=== PATIENT | male | born 1965 | race Caucasian/White ===

== ENCOUNTER → 2019-04-24 | Outpatient (CLI) | payer OTHER | LOC: COL.RAD 12:24 | DX: M79.604 Pain in right leg (principal); R60.0 Localized edema; Z96.651 Presence of right artificial knee joint ==

== ENCOUNTER → 2021-04-28 | Outpatient (CLI) | payer OTHER | LOC: DIA.ED 09:17 | DX: E11.9 Type 2 diabetes mellitus without complications (principal); E78.5 Hyperlipidemia, unspecified; I10 Essential (primary) hypertension | CPT/HCPCS: G0108 ==

== ENCOUNTER → 2021-05-19 | Outpatient (CLI) | payer OTHER | LOC: DIA.ED 08:22 | DX: E11.65 Type 2 diabetes mellitus with hyperglycemia (principal); I10 Essential (primary) hypertension; E78.5 Hyperlipidemia, unspecified | CPT/HCPCS: G0108 ==

== ENCOUNTER 2023-11-27 23:18 | Inpatient (IN) | payer OTHER ==
[~2023-11-27] VITALS: Ht 188 cm; Wt 129.9 kg
[2023-11-27 23:37] LABS: BASO # 0.1 K/mm3 (0.0-0.2); BASO % 0.3 % (0.0-2.0); EOS # 0.1 K/mm3 (0.0-0.7); EOS % 0.4 % (0.0-4.0); GRAN # 13.8 K/mm3 (1.4-6.5); GRAN % 81.5 % (42.2-75.2); HEMATOCRIT 51.7 % (42.0-52.0); HEMOGLOBIN 17.3 g/dl (13.5-18.0); LYMPH # 1.9 K/mm3 (1.2-3.4); LYMPH % 11.2 % (20.0-51.0); MEAN CELL VOLUME 92 fl (80.0-100.0); MEAN CORPUSCULAR HEMOGLOBIN 31 pg (27-31); MEAN CORPUSCULAR HGB CONC 34 g/dl (33.0-37.0); MEAN PLATELET VOLUME 9.2 fl (7.4-10.4); MONO # 1.1 K/mm3 (0.1-0.6); MONO % 6.2 % (1.7-9.3); PLATELET COUNT 299 K/mm3 (130-400); RED BLOOD COUNT 5.64 M/mm3 (4.20-5.60); REDCELL DISTRIBUTION WIDTH-CV 12.5 % (11.5-14.5)
[2023-11-28] VITALS (12 sets, daily range): BP systolic 101–159; BP diastolic 64–89; PULSE 71–99; TEMP 97.3–98.5
[2023-11-28 00:19] LABS: ALBUMIN 4.4 gm/dL (3.5-5.0); BILIRUBIN,TOTAL 1.2 mg/dL (0.2-1.2); CALCIUM 10.1 mg/dL (8.4-10.2); CREATININE, serum 1.52 mg/dL (0.72-1.25); POTASSIUM 4.3 mmol/L (3.5-4.5); TOTAL PROTEIN 7.1 gm/dL (6.2-8.1)
[2023-11-28 00:28] LABS: TROPONIN-I 0.089 ng/mL (0.00-0.033)
[2023-11-28] MEDS ORDERED: NS 500 ML IV ONE (00:30)
[2023-11-28] MEDS ORDERED: Heparin 5,000 UNITS/ML 1 ML VIAL IV PRN (00:45)
[2023-11-28] MEDS ORDERED: Heparin 5,000 UNITS/ML 1 ML VIAL IV ONE (00:45)
[2023-11-28] MEDS ORDERED: Heparin/D5W 250 ML IV SCH (00:45)
[2023-11-28 00:53] LABS: INR 1.2 (0.8-3.0); PROTHROMBIN TIME 12.7 SECONDS (9.7-12.8)
[2023-11-28] MEDS ORDERED: NS 74 ML IV ONE (01:28)
[2023-11-28] MEDS ORDERED: Iohexol 350 - 100 ML VIAL IV ONE (01:28)
[2023-11-28] MEDS ORDERED: LIPITOR 80MG80 MG PO (01:43)
[2023-11-28] MEDS ORDERED: BENICAR HCT 251 TAB PO (01:44)
[2023-11-28] MEDS ORDERED: VITAMIN D362.5 MC1 PO (01:45)
[2023-11-28] MEDS ORDERED: EPA FISH OIL1 SGL PO (01:46)
[2023-11-28] MEDS ORDERED: ULTRAM 50MG TAB50 MG PO (01:47)
[2023-11-28] MEDS ORDERED: VITAMIN D31000 I1 PO (01:56)
[2023-11-28] MEDS ORDERED: traMADol 50 MG TAB PO PRN (02:00)
[2023-11-28] MEDS ORDERED: Acetaminophen 325 MG TAB PO PRN (02:15)
[2023-11-28] MEDS ORDERED: NS 1,000 ML IV SCH (02:15)
--- NOTE | 2023-11-28 02:49 | NUR ---
THE PATIENT ARRIVED VIA ED CART ACCOMPANIED BY ED STAFF. THE PATIENT WAS ALERT AND ORIENTED AND APPROPRIATE. THE PATIENT WAS ORIENTED TO THE ROOM AND BED CONTROLS. CALL LIGHT AND PERSONAL BELONGINGS WITHIN REACH. BED IN LOW POSITION.
[2023-11-28 03:44] LABS: MAGNESIUM 1.8 mg/dL (1.6-2.6)
--- NOTE | 2023-11-28 03:56 | NUR ---
LAB CALLED AT 03:42 WITH A TROPONIN LEVEL OF 0.112. NEVA LOAIZA APRN NOTIFIED AT 03:56. NO NEW ORDERS AT THIS TIME.
[2023-11-28 04:05] LABS: TSH w REFLEX 1.097 uIU/mL (0.350-4.940)
--- NOTE | 2023-11-28 07:32 | NUR ---
RECIEVED REPORT FROM GABY ROLLE.
--- NOTE | 2023-11-28 08:00 | NUR ---
PT ALERT AND ORIENTED X4. NO C/O CHEST PAIN AT THIS TIME. C/O HUNGER EDUCATED PT ON NPO STATUS UNTIL CARDIOLOGY SEES HIM. REQUESTING TO SEE THE DOCTOR. VSS, SHIFT ASSESSMENT COMPLETE. EVEN, UNLABORED RESPR. HEPARIN DRIP RUNNING AT 10ML/HR, NS RUNNING AT 150ML/HR PER ORDERS TO LEFT HAND IV. PT IS INDEPENDENT WITH ADLS AND HAS A STEADY GAIT. HE IS ON TELE AND IS NSR. HE HAS CARDIOLGY CONSULTED. DENIES FURTHER NEED AT THIS TIME SAYS HIS WILL BE HERE LATER. CALL LIGHT WITHIN REACH.
[2023-11-28 08:25] LABS: COLLECTION METHOD CLEAN CATCH
[2023-11-28 08:31] LABS: PH 5.5 (5.0-8.5); URINE APPEARANCE Clear (CLEAR/HAZY); URINE BLOOD 2+ (NEGATIVE); URINE COLOR Yellow (YELLOW); URINE GLUCOSE Negative (NEGATIVE); URINE KETONE TRACE (NEGATIVE); URINE NITRATE Negative (NEGATIVE); URINE PROTEIN(semi-quant) Negative (NEGATIVE); URINE UROBILINOGEN 0.2 E.U/dL (0.2-1.0)
[2023-11-28 08:34] LABS: SQUAMOUS EPITHELIAL None Seen /hpf (0-10); URINE BACTERIA Rare /hpf (NONE SEEN)
[2023-11-28 09:00] LABS: BASO % 0.3 % (0.0-2.0); EOS # 0.1 K/mm3 (0.0-0.7); EOS % 0.9 % (0.0-4.0); GRAN # 8.2 K/mm3 (1.4-6.5); GRAN % 73.8 % (42.2-75.2); HEMOGLOBIN 16.3 g/dl (13.5-18.0); LYMPH % 18.1 % (20.0-51.0); MEAN CELL VOLUME 89 fl (80.0-100.0); MEAN CORPUSCULAR HEMOGLOBIN 31 pg (27-31); MEAN CORPUSCULAR HGB CONC 35 g/dl (33.0-37.0); MEAN PLATELET VOLUME 9.5 fl (7.4-10.4); MONO # 0.7 K/mm3 (0.1-0.6); MONO % 6.5 % (1.7-9.3); PLATELET COUNT 283 K/mm3 (130-400); REDCELL DISTRIBUTION WIDTH-CV 12.6 % (11.5-14.5)
[2023-11-28] MEDS ORDERED: Omega-3 Fatty Acid Esters (OTC) 1,000 MG CAP PO SCH (09:00)
[2023-11-28] MEDS ORDERED: Cholecalciferol (Vit D3) 1000 Units TAB PO SCH (09:00)
[2023-11-28] MEDS ORDERED: Pantoprazole 40 MG in NS 10 ML IV SCH (09:00)
[2023-11-28 09:33] LABS: CALCIUM 9.2 mg/dL (8.4-10.2); CREATININE, serum 0.9 mg/dL (0.72-1.25); POTASSIUM 3.6 mmol/L (3.5-4.5)
[2023-11-28 09:45] LABS: TROPONIN-I 0.141 ng/mL (0.00-0.033)
[2023-11-28] MEDS ORDERED: Metoprolol Tartrate 25 MG TAB PO SCH (10:28)
[2023-11-28] MEDS ORDERED: Magnesium Oxide 400 MG TAB PO SCH (10:38)
--- NOTE | 2023-11-28 10:41 | NUR ---
SW met with patient to complete intake. Patient provides that he lives in [place] with spouse Ya Ardon [phone]. Patient provides that he is independent with ADLs, does not utilize HH services and no DME. PCP is [facility], and pharmacy is [facility]. Patient provides that he does not have anyone appointed as DPOA and does not wish to appoint anyone at this time. Patient plans to return to his home upon DC. SW will continue to follow. DC plan: home
--- NOTE | 2023-11-28 10:53 | NUR ---
NOTIFIED DR. HART OF CRITICAL LAB. TROPONIN 0.141 NOTIFIED VERBALLY.
[2023-11-28] MEDS ORDERED: Clopidogrel 75 MG TAB PO SCH (12:49)
[2023-11-28] MEDS ORDERED: Clopidogrel 300 MG DOSE (75 mg x 4 tabs) PO ONE (13:00)
--- NOTE | 2023-11-28 13:33 | NUR ---
Call to Kandi Encarnacion to confirm ordered dose of 375mg of Pavix given now. Confirmed, yes to give 375mg of plavix now.
--- NOTE | 2023-11-28 15:06 | NUR ---
Carlos Paez. notified of critical lab result, Troponin of 0.116, notified via phone.
--- NOTE | 2023-11-28 20:00 | NUR ---
PATIENT IS A&O. VSS ON TELE. DENIES CHEST PAIN OR SOA. PATIENT DOES C/O UNCOMFORTABLE BED AND FEELING SORE/STIFF. GAVE PRN ULTRAM WITH HS MEDS, SEE MAR. TOLERATING AHA DIET, WILL BE NPO AT MIDNIGHT FOR LEXISCAN AND ECHO TOMORROW. HEPARIN GTT INFUSING VIA PUMP INTO LEFT HAND IV. HEAD TO TOE ASSESSMENT COMPLETE. C-PAP AT BEDSIDE FOR BEDTIME. NO OTHER NEEDS AT THIS TIME. INDEPENDENT IN ROOM. CALL LIGHT IN REACH.
[2023-11-29] VITALS (12 sets, daily range): BP systolic 101–161; BP diastolic 69–91; PULSE 68–93; TEMP 97.6–98.6
--- NOTE | 2023-11-29 | NUR ---
HEPXA AT GOAL, NO CHANGE PER PROTOCOL
[2023-11-29] MEDS ORDERED: NS 1,000 ML IV SCH (05:30)
[2023-11-29 07:17] LABS: CALCIUM 8.4 mg/dL (8.4-10.2); CREATININE, serum 0.81 mg/dL (0.72-1.25); MAGNESIUM 1.8 mg/dL (1.6-2.6); POTASSIUM 4.1 mmol/L (3.5-4.5)
[2023-11-29 07:26] LABS: TROPONIN-I 0.053 ng/mL (0.00-0.033)
--- NOTE | 2023-11-29 07:48 | NUR ---
Critical troponin value called to Dr. Rodrigues- no new orders rec'd.
[2023-11-29 09:47] LABS: CHOLESTEROL RISK RATIO 2.8
--- NOTE | 2023-11-29 10:26 | NUR ---
Initial visit; Patient liked to visit. He and Qa Automation Engineer talked about him losing both parents who spent a lot of time at our hospital. Patient says he is doing better and waiting for some test results. "Ricco" thanked Qa Automation Engineer for looking in on him and offering God's blessings.
--- NOTE | 2023-11-29 10:49 | NUR ---
Pt to [facility] for Nanameueiscan via w/c.
[2023-11-29] MEDS ORDERED: Regadenoson 0.08 MG/ML 5 ML SYRINGE IV SCH (11:24)
[2023-11-29] MEDS ORDERED: PLAVIX 75MG TAB75 MG PO (14:58)
[2023-11-29] MEDS ORDERED: LOPRESSOR 225 MG/TAB PO (14:58)
[2023-11-29] MEDS ORDERED: ASPIRIN E.C. 8181 MG PO (14:59)
[2023-11-29] MEDS ORDERED: PROTONIX 40MG T40 MG PO (14:59)
[2023-11-29] MEDS ORDERED: BENICAR40 MG PO (15:00)
--- NOTE | 2023-11-29 15:03 | NUR ---
José Manuel Watson APRN at bedside discussing results of Lexiscan with patient and patient's spouse.
--- NOTE | 2023-11-29 15:25 | NUR ---
Discharge orders rec'd. Patient given sandwich box. went home to get patient warmer clothes to wear home.
--- NOTE | 2023-11-29 16:40 | NUR ---
Discharge instructions reviewed- patient verbalizes understanding. IV site to d/c'd with cath tip intact. Pt escorted to private vehicle via w/c and discharged home with spouse.
== END 2023-11-29 16:50 | disposition home or self-care (01) | DRG 281 ==
LOC: COL.ER 23:18 → MEDICAL 11-28 02:04
PROVIDERS: Internal Medicine; Nurse Practitioner; Nurse Practitioner Family; ADMIT Emergency Medicine
DX: I21.4 Non-ST elevation (NSTEMI) myocardial infarction (principal); E87.20 Acidosis, unspecified; N17.9 Acute kidney failure, unspecified; R65.10 Systemic inflammatory response syndrome (SIRS) of non-infectious origin without acute organ dysfunction; E86.0 Dehydration; R91.8 Other nonspecific abnormal finding of lung field; E78.5 Hyperlipidemia, unspecified; N28.1 Cyst of kidney, acquired; E66.9 Obesity, unspecified; K22.89 Other specified disease of esophagus; I10 Essential (primary) hypertension; G47.33 Obstructive sleep apnea (adult) (pediatric); Z96.653 Presence of artificial knee joint, bilateral; Z79.899 Other long term (current) drug therapy; Z99.89 Dependence on other enabling machines and devices; Z68.36 Body mass index [BMI] 36.0-36.9, adult; Z23 Encounter for immunization
CPT/HCPCS: A9500-JZ; C9113; J1644; J2785; J7030; J7040; Q9967

== ENCOUNTER 2024-06-15 05:55 | Day surgery (SDC) | payer OTHER ==
[~2024-06-15] VITALS: Ht 188 cm; Wt 133.5 kg
[~2024-06-15 05:55] MED LIST: ASPIRIN E.C. 8181 MG PO; BENICAR HCT 251 TAB PO; BENICAR40 MG PO; EPA FISH OIL1 SGL PO; LIPITOR 80MG80 MG PO; LOPRESSOR 225 MG/TAB PO; LR 1,000 ML IV SCH; Ondansetron 4 MG/2 ML VIAL IV PRN; PLAVIX 75MG TAB75 MG PO; PROTONIX 40MG T40 MG PO; ULTRAM 50MG TAB50 MG PO; VITAMIN D31000 I1 PO; VITAMIN D362.5 MC1 PO
[2024-06-15 06:23] VITALS: BP 141/91; PULSE 73; TEMP 97.7
[2024-06-15] MEDS ORDERED: Lidocaine PF 2% (20 MG/ML) 5 ML VIAL ONE (07:32)
[2024-06-15 08:40] VITALS: BP 88/43; PULSE 70; TEMP 97.5
[2024-06-15 08:55] VITALS: BP 103/71; PULSE 64
[2024-06-15 09:05] VITALS: BP 127/62; PULSE 64
--- NOTE | 2024-06-15 09:20 | NUR ---
0840 RETURNS TO ROOM 1 PER CART. AWAKE, ALERT, RESP UNLABORED. AMBULATES TO RECLINERT WITH STANDBY ASSIST RESP UNLABORED. DENIES NAUSEA OR ABD PAIN. CALL LIGHT AT SIDE. IN ROOM 0855 TOLERATES PO WATER, SOFA AND MUFFIN WITHOUT NAUSEA. 0900 DISCHARGE INSTRUCTIONS REVIEWED. PATIENT VERBALIZES UNDERSTANDING. COPY PROVIDED IN DISCHARGE FOLDER. 0903 DR FORREST HERE TO SEE PATIENT 0915 DRESSES SELF.
== END 2024-06-15 09:22 | disposition home or self-care (01) ==
LOC: SDCO 05:55
DX: Z12.11 Encounter for screening for malignant neoplasm of colon (principal); D12.2 Benign neoplasm of ascending colon; D12.5 Benign neoplasm of sigmoid colon; E66.01 Morbid (severe) obesity due to excess calories
CPT/HCPCS: J2704; J7120